=== PATIENT | female | born 1995 | race Caucasian/White ===

== ENCOUNTER 2018-09-24 06:10 | Inpatient (IN) | payer OTHER ==
[2018-09-25] MEDS ORDERED: ELECTROLYTE-148 SOLN 500 ML IV ONE (06:45)
[2018-09-25] MEDS: ELECTROLYTE-148 SOLN 1,000 ML IV SCH (07:15)
[2018-09-25 07:18] VITALS: BMI 28.3
[2018-09-25] MEDS ORDERED: CITRIC ACID/SODIUM CITRATE 30 ML UNIT-DOSE CUP PO ONE (08:06)
[2018-09-25] MEDS ORDERED: PHENYLEPHRINE HCL 10 MG/1 ML SINGLE DOSE VIAL ONE (08:13)
[2018-09-25] MEDS ORDERED: morphine SULFATE/Preservative Free 0.5 MG/ML (1cc Syringe) ONE (08:14)
[2018-09-25] MEDS ORDERED: OXYTOCIN 20 UNITS in 0.9% NS 20 UNIT/1,000 ML INFUS.BAG IV ONE ×2 (08:14→09:09)
--- NOTE | 2018-09-25 08:16 | HP ---
Past Medical History - Primary Care Physician PCP:: Kelly Covarrubias - Admission Chief Complaint: 23 yrs 39.4/7 weeks diagnosed Breech presentation is admitted for c/section. Last sono done by [facility] office 2 weeks ago was diagnosed 37 weeks breech presentation . History of Present Illness: PNC at , [facility] Wt gain 20 lbs serial sonogram were done by [facility] for growth . NT screen & AFP screen negative 09/04/18 36 weeks culture GBS neg, gc/ct neg , CBC h/h 12.0/38.6, plt 324, Hiv neg 06/17/18 pngt 104, rpr nr , Quantiferon neg 02/28/18 panel A Pos, Hbsag neg, Rpr nr, Hiv neg, Rubella immune, Pap nilm, gc/ct neg , CF screen neg , Lead neg History Source: Patient, Medical Record - Past Medical History CARE SUPPORT REPRESENTATIVE: No: Migraine, Seizure Cardiovascular: No: HTN Pulmonary: No: Asthma Gastrointestinal: No: Constipation, Hemorrhoids Hepatobiliary: Yes: Cholelithiasis (lap choly done) Renal/: No: UTI ...: 2 ...Para: 1 (12/15/2012 7'5" Boy ) ...Term: 1 ...: 0 ...Spon : 0 ...Induced : 0 ...Multiple Gestation: 0 ...LMP: 12/22/17 ... Weeks Gestation by Dates: 39.4 ...EDC by Dates: 09/28/18 ...EDC by Sono: 09/28/18 Heme/Onc: No: Anemia, Sickle Cell Trait Infectious Disease: No: AIDS, HIV, STD's Psych: No: Addictions, Anxiety, Bipolar, Depression, Panic, Psychosis, Schizophrenia, Other - Past Surgical History Past Surgical History: Yes: Cholecystectomy (lap choly in 2017) Hx Myomectomy: No Hx Transabdominal Cerclage: No - Smoking History Smoking history: Never smoked Have you smoked in the past 12 months: No - Alcohol/Substance Use Hx Alcohol Use: No History of Substance Use: reports: None Home Medications - Allergies Allergies/Adverse Reactions: Allergies Allergy/AdvReac Type Severity Reaction Status Date / Time No Known Allergies Allergy Verified 09/25/18 07:09 - Home Medications Home Medications: Ambulatory Orders Vitamins (Sjr) - 1 tab PO DAILY #1 tablet 12/16/12 Physical Exam - Maternity Vital Signs: Vital Signs Temperature 98.6 F 09/24/18 06:10 Pulse Rate 77 09/24/18 06:10 Respiratory Rate 18 09/24/18 06:10 Blood Pressure 114/64 09/24/18 06:10 O2 Sat by Pulse Oximetry (%) Constitutional: Yes: Well Nourished, No Distress, Anxious Eyes: Yes: WNL HENT: Yes: WNL, Normocephalic Neck: Yes: WNL Cardiovascular: Yes: WNL, Regular Rate and Rhythm Lungs: Clear to auscultation Breast(s): Yes: WNL. No: Mass - Abdominal Exam/OB Fundal Height: 38 Number of Fetuses: Single Presentation: Breech Contractions: No Monitor Mode: External Heart Rate (range): 150 Heart Rate Location: Midline Category: I Accelerations: Uniform Decelerations: None - Vaginal Exam/OB Vaginal Bleediing: No Speculum Exam: No Dilatation (cm): close Effacement (%): unefface Amniotic Membrane Status: Intact Presentation: Taqueria Breech Station: -3 - Physical Exam Musculoskeletal: Yes: WNL Extremities: Yes: WNL. No: Calf Tenderness Edema: Yes Edema: LLE: 1+, RLE: 1+ Integumentary: Yes: Tattoos Deep Tendon Reflex Grade: Normal +2 ...Motor Strength: WNL Psychiatric: Yes: WNL, Alert, Oriented - Labs Lab Results: Laboratory Tests 12/15/12 09/23/18 09/23/18 01:10 16:19 16:44 WBC 7.0 Hgb 13.1 Hct 36.7 D Plt Count 321 D PT with INR INR Sodium Potassium Chloride Carbon Dioxide BUN Creatinine Creat Clearance w eGFR Random Glucose Calcium Total Bilirubin AST ALT Total Protein Albumin Urine Protein Negative RPR Titer Nonreactive 09/23/18 09/23/18 16:44 16:44 WBC Hgb Hct Plt Count PT with INR 11.00 INR 0.93 Sodium 136 Potassium 4.2 Chloride 104 Carbon Dioxide 24 BUN 9 Creatinine 0.5 L Creat Clearance w eGFR > 60 Random Glucose 69 L Calcium 9.0 Total Bilirubin 0.4 AST 48 H ALT 73 H Total Protein 6.9 Albumin 3.2 L Urine Protein RPR Titer Problem List - Problems (1) with 39 completed weeks gestation Code(s): Z3A.39 - 39 WEEKS GESTATION OF (2) [place]qu[place] breech presentation Code(s): O32.1XX0 - MATERNAL CARE FOR BREECH PRESENTATION, UNSP Assessment/Plan 23 yrs , 39.4 weeks , [place] breech diagnosed confirmed by bed side ultrasound . . gbs neg Plan delivery by Primary c/section
[2018-09-25] MEDS ORDERED: ONDANSETRON 4 MG/2 ML VIAL IVPUSH PRN (08:26)
[2018-09-25] MEDS ORDERED: ACETAMINOPHEN 325 MG TABLET (FP) PO PRN (08:26)
[2018-09-25 09:08] LABS: ARTERIAL BLD GAS O2 SATURATION 22.2 % (90-98.9); ARTERIAL BLOOD GAS BASE EXCESS -1.6 meq/l (-2-2); ARTERIAL BLOOD GAS PO2 16.7 mmHg (80-100); ARTERIAL BLOOD GAS pH 7.27 (7.35-7.45)
[2018-09-25 09:16] LABS: VENOUS PC02 42.6 mmHg (38-52); VENOUS PH 7.37 (7.32-7.42); VENOUS PO2 38.9 mmHg (28-48)
[2018-09-25] MEDS ORDERED: ceFAZolin SODIUM 1 GM VIAL ONE ×2 (09:24→15:16)
[2018-09-25] MEDS ORDERED: METHYLERGONOVINE MALEATE 0.2 MG/1 ML AMP IM PRN (09:29)
[2018-09-25] MEDS ORDERED: SENNOSIDES/DOCUSATE COMBO (SENNA PLUS) TABLET (UD) PO PRN (09:29)
[2018-09-25] MEDS ORDERED: OXYTOCIN 20 UNITS in 0.9% NS 20 UNIT/1,000 ML INFUS.BAG IV SCH (09:30)
--- NOTE | 2018-09-25 09:40 | PN ---
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 1 gm ivpb Ancef given
--- NOTE | 2018-09-25 09:45 | OP ---
Operative Note - Note: Operative Date: 09/25/18 Pre-Operative Diagnosis: 39.4/7 weeks Taqueria Breech Operation: Primary low flap Transverse C/section Findings: 8.37AM Baby Boy, 9/9, wt 9".0", [place] Breech presentation, RSA position Both tubes & ovaries normal Santy Burring Machine Operator present in the room Surgeon: Kelly Covarrubias Radio Mechanic Apprentice: Julien Mortensen) Anesthesiologist/BUCKET TURNER: Flo Agudelo Anesthesia: Spinal Specimens Removed: cord segment for cord blood gas. cord blood. placenta Estimated Blood Loss (mls): 800 Drains, Volume Out (mls): 100 (gannon output, gama color urine ) Fluid Volume Replaced (mls): 1,500 (Iv Ancef 1 Gm ivpb prior toincision ) Operative Report Dictated: Yes
[2018-09-25] MEDS ORDERED: ENOXAPARIN NA (PORCINE) 40 MG/0.4 ML DISP.SYRIN SQ SCH (10:00)
--- NOTE | 2018-09-25 11:31 | OP ---
DATE OF OPERATION: DATE OF DICTATION: 09/25/2018 PREOPERATIVE DIAGNOSIS: A 39.47 weeks, catarino breech presentation. OPERATION DONE: Primary low flap transverse section. SURGEON: Kelly Covarrubias MD HYDRO TECHNICIAN: JONAS Seymour ANESTHESIOLOGIST: Flo Agudelo MD OPTICS ENGINEER: Keny Levine MD ANESTHESIA: Spinal. FINDINGS: This is a 23-year-old 2, para 1-0-0-1, was diagnosed with breech presentation confirmed before taking to the operating room, and patient not in labor. PROCEDURE: Abdomen was shaved, prepped. Nathan catheter was placed. Patient was taken to the operating room table. Spinal anesthesia was given. Abdomen was painted and draped in usual manner. Pfannenstiel incision was made through skin and subcutaneous tissue. Anterior rectus sheath was incised transversely. Bleeding points were clamped and cauterized. The rectus muscle was from the rectus sheath. Parietal peritoneum was opened vertically. The lower flap by the peritoneum was incised transversely. Lower uterine segment was incised transversely. Amniotic fluid was clear. Baby in a catarino breech presentation in RSA position and was delivered. The breech ,body, the arms, and lastly the head was delivered. Immediate oral and nasal suction of the baby was done. The cord was clamped. Baby was handed over to the legal activity adjudicator. Cord segment was sent for the cord blood gas. Cord blood was collected. Placenta was removed completely with the membrane. Baby boy. Apgars were 9/9. Delivered at 8:37 a.m. Baby's weight is 9 pounds. The uterine incision was closed completely. First layer was closed with Biosyn 0 suture continuous locking sutures were taken. Second layer was closed with Biosyn 0 suture continuous intermittently locking with vertical mattress sutures were taken. Hemostasis was verified. The bladder peritoneum also was closed with Biosyn 0 suture. Both tubes and ovaries were normal. Irrigation was done. Sponge, instrument, and needle count was correct. Hemostasis was noted, and then the closure of the abdomen was done. Parietal peritoneum was closed with Vicryl 0 suture. Muscles were approximated together with Vicryl 0 interrupted suture. Then, anterior rectus sheath was closed with a Vicryl 0 continuous sutures, and the hemostasis was checked in subcutaneous tissue. Subcutaneous tissue was approximated with Vicryl 0 interrupted sutures , and the skin was approximated with walt. Pressure dressing was given. Blood clots were removed from the vagina. Patient tolerated the procedure well. She was transferred to the recovery room in stable condition. Estimated blood loss was 800 mL, and the urine output intraoperatively was 100 mL and was gama color. She received 1 g of IV Ancef prior to the incision. Javier [id number] MTDD
[2018-09-25] MEDS: IBUPROFEN 800 MG/8 ML IJ IVPB PRN ×2 (13:04→23:47)
[2018-09-25] MEDS ORDERED: DEXTROSE 5%-WATER - 50 ML IVPB ONE (15:16)
[2018-09-25] MEDS: CEFAZOLIN 1 GM in DEXTROSE 5%-WATER - 50 ML IVPB SCH (15:32)
[2018-09-26] MEDS ORDERED: ceFAZolin SODIUM 1 GM VIAL ONE ×2 (00:50→07:45)
[2018-09-26] MEDS ORDERED: DEXTROSE 5%-WATER - 50 ML IVPB ONE ×2 (00:50→07:45)
[2018-09-26] MEDS: CEFAZOLIN 1 GM in DEXTROSE 5%-WATER - 50 ML IVPB SCH ×2 (00:54→07:51)
[2018-09-26] MEDS ORDERED: oxyCODONE HCL 5 MG TABLET PO PRN ×2 (06:00)
[2018-09-26 07:21] LABS: BASO % 0.2 % (0-2.0); HEMOGLOBIN 10.5 GM/dL (10.7-15.3); LYMPH % 15.1 % (8-40); MCH 30.5 pg (25.7-33.7); MCHC 32.7 g/dl (32.0-36.0); MEAN CELL VOLUME 93.3 fl (80-96); MEAN PLT VOLUME 7.7 fl (7.5-11.1); MONO % 5.6 % (3.8-10.2); NEUT % 78.1 % (42.8-82.8); PLATELET COUNT 263 K/MM3 (134-434); RBC 3.43 M/mm3 (3.60-5.2); WHITE BLOOD COUNT 9.8 K/mm3 (4.0-10.0)
--- NOTE | 2018-09-26 08:00 | PN ---
Progress Note (short form) - Note Progress Note: pod 1, s/p c/s , has mild cramps Last Vital Signs Temp Pulse Resp BP Pulse Ox 98.2 F 73 20 102/65 100 09/26/18 06:00 09/26/18 06:00 09/26/18 06:00 09/26/18 06:00 09/25/18 10:15 abdomen soft, no distension, no cva incision dry, clean no calf tenderness no cva lochia mild plan ambulate, cbc. advance diet
[2018-09-26] MEDS ORDERED: BISACODYL 10 MG SUPP.RECT RC PRN (09:29)
[2018-09-26] MEDS: PRENATAL VITAMINS W/ FOLIC ACID TABLET (FP) PO SCH (09:50)
[2018-09-26] MEDS: ENOXAPARIN NA (PORCINE) 40 MG/0.4 ML DISP.SYRIN SQ SCH (09:51)
[2018-09-26] MEDS: ACETAMINOPHEN 325 MG TABLET (FP) PO PRN ×2 (14:18→23:05)
[2018-09-26] MEDS: IBUPROFEN 600 MG TABLET (FP) PO PRN ×2 (14:19→23:04)
[2018-09-26] MEDS: SIMETHICONE 80 MG TAB.CHEW (FP) PO PRN ×2 (14:19→23:04)
--- NOTE | 2018-09-26 15:28 | PN ---
Progress Note (short form) - Note Progress Note: Anesthesia postop note 23 y/o F s/p spinal anesthesia for section, duramorph POD#1, vss, aaox3, no complaints, pain well controlled, sensory motor intact distally
[2018-09-26] MEDS: FERROUS SO4 325 MG TABLET (FP) PO SCH (23:07)
[2018-09-27] MEDS: ENOXAPARIN NA (PORCINE) 40 MG/0.4 ML DISP.SYRIN SQ SCH (09:19)
[2018-09-27] MEDS: FERROUS SO4 325 MG TABLET (FP) PO SCH ×2 (09:20→21:52)
[2018-09-27] MEDS: SIMETHICONE 80 MG TAB.CHEW (FP) PO PRN ×3 (09:20→20:21)
[2018-09-27] MEDS: IBUPROFEN 600 MG TABLET (FP) PO PRN ×3 (09:21→20:20)
[2018-09-27] MEDS: PRENATAL VITAMINS W/ FOLIC ACID TABLET (FP) PO SCH (09:21)
[2018-09-27] MEDS: ACETAMINOPHEN 325 MG TABLET (FP) PO PRN ×3 (09:21→20:21)
--- NOTE | 2018-09-27 14:27 | PN ---
Post Progress Note - Subjective Subjective: 23 yo Para 2 status post seen and evaluated. She's out of bed to chair. No complaints Post Day: 2 Type of Delivery: Primary C/S Vital Signs: Vital Signs Temperature 98.5 F 09/27/18 10:00 Pulse Rate 86 09/27/18 10:00 Respiratory Rate 16 09/27/18 10:00 Blood Pressure 125/72 09/27/18 10:00 O2 Sat by Pulse Oximetry (%) 100 09/25/18 10:15 Breast Exam: Yes: Soft Uterus: Yes: Fundus Firm Incision: Yes: [place] intact Abdomen/GI: Yes: Abdomen soft, Tolerating PO Lochia: Yes: Rubra Lochia, amount: Small Extremities: Yes: Calves non-tender Activity: Ambulating - Labs Labs: CBC WBC 9.8 K/mm3 (4.0-10.0) 09/26/18 06:34 RBC 3.43 M/mm3 (3.60-5.2) L 09/26/18 06:34 Hgb 10.5 GM/dL (10.7-15.3) L 09/26/18 06:34 Hct 32.0 % (32.4-45.2) L 09/26/18 06:34 MCV 93.3 fl (80-96) 09/26/18 06:34 MCH 30.5 pg (25.7-33.7) 09/26/18 06:34 MCHC 32.7 g/dl (32.0-36.0) 09/26/18 06:34 RDW 14.0 % (11.6-15.6) 09/26/18 06:34 Plt Count 263 K/MM3 (134-434) 09/26/18 06:34 MPV 7.7 fl (7.5-11.1) 09/26/18 06:34 Absolute Neuts (auto) 7.7 K/mm3 (1.5-8.0) 09/26/18 06:34 Neutrophils % 78.1 % (42.8-82.8) 09/26/18 06:34 Lymphocytes % 15.1 % (8-40) 09/26/18 06:34 Monocytes % 5.6 % (3.8-10.2) 09/26/18 06:34 Eosinophils % 1.0 % (0-4.5) 09/26/18 06:34 Basophils % 0.2 % (0-2.0) 09/26/18 06:34 Nucleated RBC % 0 % (0-0) 09/26/18 06:34 Problem List - Problems (1) Status post Code(s): Z98.891 - HISTORY OF UTERINE SCAR FROM PREVIOUS SURGERY Assessment/Plan Status post Ambulation Analgesia as needed Continue post op care
[2018-09-28] MEDS: ELECTROLYTE-148 SOLN 1,000 ML IV SCH (01:24)
[2018-09-28] MEDS: IBUPROFEN 600 MG TABLET (FP) PO PRN ×2 (06:55→18:24)
[2018-09-28] MEDS: ACETAMINOPHEN 325 MG TABLET (FP) PO PRN ×2 (06:55→18:23)
[2018-09-28] MEDS: SIMETHICONE 80 MG TAB.CHEW (FP) PO PRN ×2 (06:55→18:23)
[2018-09-28 08:11] LABS: BASO % 0.2 % (0-2.0); EOS % 5.3 % (0-4.5); HEMATOCRIT 31.5 % (32.4-45.2); HEMOGLOBIN 10.4 GM/dL (10.7-15.3); LYMPH % 23.7 % (8-40); MCH 30.9 pg (25.7-33.7); MCHC 32.9 g/dl (32.0-36.0); MEAN PLT VOLUME 7.7 fl (7.5-11.1); MONO % 6.9 % (3.8-10.2); NEUT % 63.9 % (42.8-82.8); PLATELET COUNT 326 K/MM3 (134-434); RBC 3.35 M/mm3 (3.60-5.2); RDW 14.4 % (11.6-15.6); WHITE BLOOD COUNT 7.3 K/mm3 (4.0-10.0)
[2018-09-28] MEDS: PRENATAL VITAMINS W/ FOLIC ACID TABLET (FP) PO SCH (09:24)
[2018-09-28] MEDS: FERROUS SO4 325 MG TABLET (FP) PO SCH ×2 (09:24→22:31)
[2018-09-28] MEDS: ENOXAPARIN NA (PORCINE) 40 MG/0.4 ML DISP.SYRIN SQ SCH (09:24)
--- NOTE | 2018-09-28 14:10 | PN ---
Post Progress Note - Subjective Subjective: 23 yo status post primary , seen and evaluated. Doing well. Post Day: 3 Type of Delivery: Primary C/S Vital Signs: Vital Signs Temperature 98.4 F 09/28/18 09:58 Pulse Rate 64 09/28/18 09:58 Respiratory Rate 20 09/28/18 09:58 Blood Pressure 122/69 09/28/18 09:58 O2 Sat by Pulse Oximetry (%) 100 09/25/18 10:15 Breast Exam: Yes: Soft Uterus: Yes: Fundus Firm Incision: Yes: [place] intact Abdomen/GI: Yes: Abdomen soft, Tolerating PO Lochia: Yes: Rubra Lochia, amount: Small Extremities: Yes: Calves non-tender Perineum: Yes: Intact Activity: Ambulating - Labs Labs: CBC WBC 7.3 K/mm3 (4.0-10.0) 09/28/18 07:30 RBC 3.35 M/mm3 (3.60-5.2) L 09/28/18 07:30 Hgb 10.4 GM/dL (10.7-15.3) L 09/28/18 07:30 Hct 31.5 % (32.4-45.2) L 09/28/18 07:30 MCV 94.0 fl (80-96) 09/28/18 07:30 MCH 30.9 pg (25.7-33.7) 09/28/18 07:30 MCHC 32.9 g/dl (32.0-36.0) 09/28/18 07:30 RDW 14.4 % (11.6-15.6) 09/28/18 07:30 Plt Count 326 K/MM3 (134-434) D 09/28/18 07:30 MPV 7.7 fl (7.5-11.1) 09/28/18 07:30 Absolute Neuts (auto) 4.7 K/mm3 (1.5-8.0) 09/28/18 07:30 Neutrophils % 63.9 % (42.8-82.8) 09/28/18 07:30 Lymphocytes % 23.7 % (8-40) D 09/28/18 07:30 Monocytes % 6.9 % (3.8-10.2) 09/28/18 07:30 Eosinophils % 5.3 % (0-4.5) H D 09/28/18 07:30 Basophils % 0.2 % (0-2.0) 09/28/18 07:30 Nucleated RBC % 0 % (0-0) 09/28/18 07:30 Problem List - Problems (1) Status post Code(s): Z98.891 - HISTORY OF UTERINE SCAR FROM PREVIOUS SURGERY Assessment/Plan Status post Ambulation Analgesia as needed Continue post op care
[2018-09-29 01:46] VITALS: PULSE 76
[2018-09-29 09:17] VITALS: BP 95/50; TEMP 97.4
[2018-09-29] MEDS: FERROUS SO4 325 MG TABLET (FP) PO SCH (09:40)
[2018-09-29] MEDS: PRENATAL VITAMINS W/ FOLIC ACID TABLET (FP) PO SCH (09:40)
[2018-09-29] MEDS: ENOXAPARIN NA (PORCINE) 40 MG/0.4 ML DISP.SYRIN SQ SCH (09:40)
[2018-09-29] MEDS: ACETAMINOPHEN 325 MG TABLET (FP) PO PRN (09:51)
[2018-09-29] MEDS: SIMETHICONE 80 MG TAB.CHEW (FP) PO PRN (09:51)
[2018-09-29] MEDS: IBUPROFEN 600 MG TABLET (FP) PO PRN (09:51)
--- NOTE | 2018-09-29 11:42 | DS ---
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 No: Distention Renal/: Yes: WNL, Other (voiding without difficulty). No: CVA Tenderness - Left, CVA Tenderness - Right External Genitalia: Yes: Normal ....Post : Yes: Uterus firm (below umblicus), Uterus non-tender, Slight lochia rubra Breast(s): Yes: WNL (not engorged , BF) Musculoskeletal: Yes: WNL Extremities: Yes: WNL. No: Calf Tenderness Edema: LLE: 1+, RLE: 1+ Integumentary: Yes: WNL Wound/Incision: Yes: Clean/Dry, Well Approximated, Steri Strips, Open to air, Goran Removed. No: Reddened, Bleeding, Excoriated Neurological: Yes: WNL, Alert, Oriented ...Motor Strength: WNL Psychiatric: Yes: WNL, Alert, Oriented Labs: CBC, BMP 09/28/18 07:30 Delivery - Delivery Section: Primary, Low Flap Transverse (Indication: 39.4 weeks, Taqu[place] breech) Type of Anesthesia: Spinal Episiotomy/Laceration: None EBL (cc): 800 (gannon output 100 ml gama color ) Delivery, Single - Stages of Labor Date of Delivery: 09/25/18 Time of Delivery: 08:37 Time Placenta Delivered: 08:38 Placenta: Yes: Manual Removal, Uterine Exploration - Condition of Infant Algebraist/Systems Technologist Present: Yes Name: Keny Levine Infant Gender: Male Weight: 9 lb Position: Right, SA Total Hours ROM (Hrs/Mins): 2min - 1 Minute Total Score: 9 5 Minutes Total Score: 9 - [place] Feeding Plan Initial Plan: Exclusive throughout hospitalization Remarks - Remarks Remarks: 23 yrs , 39.4/7 weeks , gbs neg, pnc at 2, [facility] Intraop course uneventful. 1 gm ivpb Ancef given post op course uneventful. discharge today Discharge Summary Reason For Visit: C SECTION Current Active Problems Taqueria breech presentation (Acute) with 39 completed weeks gestation (Acute) Status post (Acute) Condition: Stable - Instructions Diet, Activity, Other Instructions: Post Instructions DIET: Continue good diet high in protein, calcium, and iron rich foods. Drink at least eight (8) glasses of water daily in addition to other fluids. ct Regular diet MEDICATIONS: Continue vitamins and iron as previously directed. Motrin and Tylenol may be taken for minor discomfort. ACTIVITY: Mild to moderate exercise may be started in two (2) weeks. Take frequent rest periods. Resume normal activity after six (6) week check up. WOUND CARE OF OPERATIVE SITE: Continue use of perineal bottle until vaginal discharge stops. Keep area clean. Shower daily. Keep abdominal wound dry. Report any drainage or redness to physician. Tub baths, tampons and douches are not permitted for [address] Breast feeding & or Bottle feeding BREAST CARE: (For those that are not ): If engorgement occurs: Wear tight fitting bra. Take Tylenol or Motrin for pain. Apply cold packs (ice in bags to each breast ) FAMILY PLANNING: There are many control alternatives to pursue and they should be discussed at your first office visit. You may resume sexual activity after your six (6) week check up. (Remember, breast feeding is not a contraceptive) NEXT PHYSICIAN APPOINTMENT: Be certain to call for a one (1) week appointment, unless otherwise directed. Saturday for wound check, removal of goran Call Clinic or got to Emergency Dept if you have any of the following: Heavy vaginal bleeding Painful urination Leg pain Unusual odor noted to vaginal bleeding High fever Red streaking noted on breast Referrals: Kelly Covarrubias MD [Staff Physician] - Disposition: HOME - Home Medications Comprehensive Discharge Medication List: Ambulatory Orders Acetaminophen [Tylenol .Regular Strength -] 500 mg PO Q4H PRN #30 tablet Ferrous Sulfate [Feosol] 325 mg PO BID #30 tab 09/25/18 Ibuprofen [Motrin -] 600 mg PO Q4H PRN #30 tablet 09/25/18 Vitamins (Sjr) - 1 tab PO DAILY #30 tablet 09/25/18
--- NOTE | 2018-09-30 16:06 | PATH ---
Surgical Pathology Report Patient Name: ALVARO CHEN Med. Rec. 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 Specimen(s) Received PLACENTA Clinical History , 39.4 weeks breech presentation 11/2012 Final Diagnosis PLACENTA, DELIVERY: FOCALLY DISRUPTED THIRD TRIMESTER PLACENTA WITH INTERVILLOUS FIBRIN DEPOSITION, 3 VESSEL UMBILICAL CORD, AND UNREMARKABLE PLACENTAL MEMBRANES. Electronically Signed Sumanth Kaur M.D. Gross Description The specimen is received fresh labeled placenta and is a 612 gram, 20.0 x 12.5 x 3.2 cm. placenta with attached membranes and umbilical cord. The attached membranes are cancino, translucent with focal opacities and insert marginally. The umbilical cord measures 21 cm. in length and averages 1.2 cm. in diameter. The cord inserts eccentrically, 2.0 cm. to the nearest margin. No true knots or strictures are identified. Cut surface of the umbilical cord reveals 3 vessels. The surface is matta-blue with minimal fibrin deposition and appropriate caliber vessels. The maternal surface is red-brown with focal defects. Sectioning reveals red-brown, spongy parenchyma. No lesions are identified. Load Tallier sections are submitted in three cassettes as follows: 1- membrane rolls and umbilical cord; 2-3- full thickness sections of placenta. 09/29/2018 [facility]09/29/2018
== END 2018-09-29 13:45 | disposition home or self-care (01) | DRG 540 ==
LOC: JLDR 06:10 → UNDOADMIN 06:10 → JLDR 09-25 06:10 → J3W 09-25 10:30
PROVIDERS: ADMIT Obstetrics & Gynecology; ATTEND Obstetrics & Gynecology
PROC: 10D00Z1 Extraction of Products of Conception, Low, Open Approach (ICD-10-PCS; principal; 2018-09-25)
DX: O32.1XX0 Maternal care for breech presentation, not applicable or unspecified (principal); Z3A.39 39 weeks gestation of pregnancy; Z37.0 Single live birth
CPT/HCPCS: 36415; 36600; 82803; 85025; 88307-TC

== ENCOUNTER 2020-09-12 07:40 | Inpatient (IN) | payer OTHER ==
[2020-09-12 09:17] VITALS: BMI 30.9
[2020-09-12 09:33] LABS: BASO % 0.3 % (0-2.0); EOS % 0.4 % (0-4.5); HEMATOCRIT 35.5 % (32.4-45.2); HEMOGLOBIN 12.2 GM/dL (10.7-15.3); LYMPH % 17.7 % (8-40); MCH 31.7 pg (25.7-33.7); MCHC 34.4 g/dl (32.0-36.0); MEAN CELL VOLUME 92.2 fl (80-96); MEAN PLT VOLUME 8.4 fl (7.5-11.1); MONO % 5.2 % (3.8-10.2); NEUT % 76.4 % (42.8-82.8); PLATELET COUNT 291 K/MM3 (134-434); RBC 3.85 M/mm3 (3.60-5.2); RDW 13.8 % (11.6-15.6); WHITE BLOOD COUNT 5.8 K/mm3 (4.0-10.0)
[2020-09-12 09:39] LABS: INR 0.91 (0.83-1.09)
[2020-09-12 09:42] LABS: ACTIVATED PTT 30.6 SECONDS (25.2-36.5)
[2020-09-12] MEDS ORDERED: ELECTROLYTE-148 SOLN 1,000 ML IV SCH (09:45)
[2020-09-12 09:56] LABS: POTASSIUM 3.8 mmol/L (3.5-5.1)
[2020-09-12 09:58] LABS: CALCIUM 8.8 mg/dL (8.5-10.1)
[2020-09-12 10:02] LABS: CREATININE 0.5 mg/dL (0.55-1.3)
[2020-09-12] MEDS ORDERED: OXYTOCIN 30 UNITS in 0.9% NS 30 UNIT/500 ML INFUS.BAG IVPB SCH (10:30)
[2020-09-12] MEDS ORDERED: AMPICILLIN - 2 GM in SODIUM CHLORIDE 100 ML IVPB ONE (10:33)
[2020-09-12] MEDS ORDERED: OXYTOCIN 30 UNITS in 0.9% NS 30 UNIT/500 ML INFUS.BAG IVPB ONE (10:50)
[2020-09-12] MEDS ORDERED: AMPICILLIN SODIUM 2 GM VIAL ONE (10:50)
[2020-09-12] MEDS ORDERED: AMPICILLIN - 1 GM in SODIUM CHLORIDE 100 ML IVPB SCH (14:33)
[2020-09-12] MEDS ORDERED: AMPICILLIN SODIUM 1 GM VIAL ONE ×2 (14:58→18:35)
[2020-09-12] MEDS: AMPICILLIN - 1 GM in SODIUM CHLORIDE 100 ML IVPB SCH ×3 (15:00→23:59)
[2020-09-12] MEDS ORDERED: FENTANYL/BUPIVACAINE/NS/PF - PCEA - 50 ML DISP.SYRIN EP ONE (15:39)
[2020-09-12] MEDS ORDERED: PCA PUMP NR ONE ×2 (15:39→22:13)
[2020-09-12] MEDS ORDERED: NALOXONE HCL 0.4 MG/ML VIAL IVPUSH PRN (15:50)
[2020-09-12] MEDS ORDERED: BUPIVACAINE HCL/PF 0.25% (2.5MG/ML) 10 ML VIAL ONE (15:52)
[2020-09-12] MEDS: FENTANYL/BUPIVACAINE/NS/PF - PCEA - 50 ML DISP.SYRIN EP SCH (16:05)
[2020-09-12] MEDS ORDERED: LIDOCAINE HCL 1% PRESERVATIVE FREE - 30ML VIAL ONE (20:18)
[2020-09-12] MEDS ORDERED: OXYTOCIN 20 UNITS in 0.9% NS 20 UNIT/1,000 ML INFUS.BAG IV ONE (20:18)
[2020-09-12] MEDS ORDERED: MISOPROSTOL 200 MCG TABLET ONE (21:32)
[2020-09-12] MEDS ORDERED: BISACODYL 10 MG SUPP.RECT RC PRN (21:43)
[2020-09-12] MEDS ORDERED: BENZOCAINE 20% 57 GM BOTTLE TP PRN (21:43)
[2020-09-12] MEDS ORDERED: BENZOCAINE 28 GM HEMORRHOIDAL OINTMENT TP PRN (21:43)
[2020-09-12] MEDS ORDERED: WITCH HAZEL 50% (TUCKS) 40 PAD/JAR PAD TP PRN (21:43)
[2020-09-12] MEDS ORDERED: MISOPROSTOL 200 MCG TABLET PV ONE (21:44)
[2020-09-12] MEDS ORDERED: OXYTOCIN 20 UNITS in 0.9% NS 20 UNIT/1,000 ML INFUS.BAG IV SCH (21:45)
[2020-09-12] MEDS ORDERED: IBUPROFEN 600 MG TABLET (FP) PO ONE (22:16)
[2020-09-12] MEDS ORDERED: ACETAMINOPHEN 325 MG TABLET (FP) ONE (22:16)
[2020-09-12 22:39] LABS: CORD BASE EXCESS -7.4 mmol/L (0-2); CORD HCO3 18.7 mmHg (20-29); CORD PCO2 40.2 mmHg (30-78); CORD pH 7.285 (7.14-7.44)
[2020-09-12 22:42] LABS: CORD HCO3 21.4 mmHg (20-29); CORD PCO2 85.3 mmHg (30-78); CORD pH 7.018 (7.14-7.44)
[2020-09-12] MEDS: IBUPROFEN 600 MG TABLET (FP) PO PRN (23:17)
[2020-09-12] MEDS: ACETAMINOPHEN 325 MG TABLET (FP) PO PRN (23:21)
[2020-09-13 08:11] LABS: BASO % 0.2 % (0-2.0); EOS % 0.3 % (0-4.5); HEMATOCRIT 28.2 % (32.4-45.2); HEMOGLOBIN 9.7 GM/dL (10.7-15.3); LYMPH % 11.2 % (8-40); MCH 31.5 pg (25.7-33.7); MCHC 34.3 g/dl (32.0-36.0); MEAN CELL VOLUME 91.7 fl (80-96); MEAN PLT VOLUME 7.9 fl (7.5-11.1); MONO % 6.8 % (3.8-10.2); NEUT % 81.5 % (42.8-82.8); PLATELET COUNT 244 K/MM3 (134-434); RBC 3.07 M/mm3 (3.60-5.2); RDW 13.6 % (11.6-15.6); WHITE BLOOD COUNT 10.5 K/mm3 (4.0-10.0)
[2020-09-13] MEDS: ACETAMINOPHEN 325 MG TABLET (FP) PO PRN ×2 (11:35→21:25)
[2020-09-13] MEDS: IBUPROFEN 600 MG TABLET (FP) PO PRN ×2 (11:36→21:25)
[2020-09-13] MEDS ORDERED: SENNOSIDES/DOCUSATE COMBO (SENNA PLUS) TABLET (UD) PO PRN (22:00)
[2020-09-14] MEDS: FENTANYL/BUPIVACAINE/NS/PF - PCEA - 50 ML DISP.SYRIN EP SCH (07:12)
[2020-09-14] MEDS ORDERED: diphenhydrAMINE HCL 25 MG CAPSULE (FP) PO ONE (07:40)
[2020-09-14] MEDS: ACETAMINOPHEN 325 MG TABLET (FP) PO PRN (08:19)
[2020-09-14] MEDS: IBUPROFEN 600 MG TABLET (FP) PO PRN (08:19)
[2020-09-14 09:24] VITALS: BP 104/67; PULSE 81; TEMP 97.8
== END 2020-09-14 13:05 | disposition home or self-care (01) | DRG 560 ==
LOC: JLDR 07:40 → J3W 23:56
PROVIDERS: ADMIT Student in an Organized Health Care Education/Training Program; ATTEND Student in an Organized Health Care Education/Training Program
PROC: 10E0XZZ Delivery of Products of Conception, External Approach (ICD-10-PCS; principal; 2020-09-12)
DX: O34.219 Maternal care for unspecified type scar from previous cesarean delivery (principal); O36.63X0 Maternal care for excessive fetal growth, third trimester, not applicable or unspecified; O48.0 Post-term pregnancy; Z3A.41 41 weeks gestation of pregnancy; Z37.0 Single live birth; O42.02 Full-term premature rupture of membranes, onset of labor within 24 hours of rupture; O69.81X0 Labor and delivery complicated by cord around neck, without compression, not applicable or unspecified; L50.8 Other urticaria
CPT/HCPCS: 36415; 36600; 59409; 80048; 82803; 85025; 85610; 85730; 86780; 86850; 86900; 86901